=== PATIENT | male | born 1955 | race Caucasian/White ===

== ENCOUNTER 2022-11-17 04:29 | Day surgery (SDC) | payer BC ==
[2022-11-16 09:21] VITALS: BMI 26.3
[2022-11-17 14:30] VITALS: BP 119/69; PULSE 78; RESP 14; TEMP 97.4
== END 2022-11-17 09:30 | disposition home or self-care (01) ==
LOC: JASU-ENDO 04:29
PROVIDERS: ATTEND Internal Medicine Gastroenterology
PROC: 0DJD8ZZ Inspection of Lower Intestinal Tract, Via Natural or Artificial Opening Endoscopic (ICD-10-PCS; principal; 2022-11-17 08:30)
DX: Z12.11 Encounter for screening for malignant neoplasm of colon (principal); Z86.010 Personal history of colon polyps; K57.30 Diverticulosis of large intestine without perforation or abscess without bleeding
CPT/HCPCS: 82962

== ENCOUNTER 2024-11-21 06:21 | Day surgery (SDC) | payer BC ==
[2024-11-14 12:31] VITALS: BMI 24.7
[2024-11-21 08:49] VITALS: TEMP 97.2
[2024-11-21 09:01] VITALS: RESP 18
[2024-11-21 09:49] VITALS: BP 135/72; PULSE 63
== END 2024-11-21 09:40 | disposition home or self-care (01) ==
LOC: JASU-ENDO 06:21
PROVIDERS: ATTEND Internal Medicine Gastroenterology
PROC: 0DB78ZX Excision of Stomach, Pylorus, Via Natural or Artificial Opening Endoscopic, Diagnostic (ICD-10-PCS; 2024-11-21)
PROC: 0DB68ZX Excision of Stomach, Via Natural or Artificial Opening Endoscopic, Diagnostic (ICD-10-PCS; principal; 2024-11-21 08:30)
DX: R93.3 Abnormal findings on diagnostic imaging of other parts of digestive tract (principal); E11.9 Type 2 diabetes mellitus without complications; Z79.84 Long term (current) use of oral hypoglycemic drugs; Z79.85 Long-term (current) use of injectable non-insulin antidiabetic drugs
CPT/HCPCS: 82962; 88305-TC; 88342-TC